=== PATIENT | female | born 1980 | race Caucasian/White ===

== ENCOUNTER 2020-05-05 11:13 | Emergency (ER) | payer OTHER, MEDICAID, SELFPAY ==
[2020-05-05 11:37] VITALS: BP 158/73; PULSE 97; RESP 16; TEMP 36.4; O2SAT 99; BMI 55.1
--- NOTE | 2020-05-05 12:02 | ED_ITS ---
HPI - Extremity Problem <NAPOLEON Shields - Last Filed: 05/05/20 18:28> General Chief complaint: Extremity Problem,Nontraumatic Stated complaint: both lower leg swelling/bruising/sob x6 weeks Time Seen by Provider: 05/05/20 11:17 Source: patient Mode of arrival: Wheelchair Limitations: no limitations History of Present Illness HPI Narrative: 40yo female with history of mentation delay and hypertension, presents to the emergency department with her mother for bilateral lower leg swelling. Mother states she has had chronic edema for the past few years. However over the past 5 weeks they have noticed increasing edema bilaterally and a brownish color noted to the bottom of her legs. Patient does report bilateral leg pain that is worse at night. Mother has been concerned as patient had increasing respiratory effort with activity, mother also reports she occasionally makes gasping noises during her sleep over the past year. Mother and patient deny any other symptoms such as chest pain, dizziness, syncope, fevers, chills, cough, abdominal pain, vomiting, nausea, trauma to the area, or decreased sensation. Mother states patient is fairly sedentary. Patient has had a recent MRI of her knee due to increasing pain, arthritis and bone spurs noted. She has a follow-up with an orthopedic for further evaluation of this. Related Data Previous Rx's Medication Instructions Recorded doxycycline hyclate 100 mg PO BID 7 Days #14 cap 05/05/20 Allergies Allergy/AdvReac Type Severity Reaction Status Date / Time No Known Drug Allergies Allergy Verified 05/05/20 11:37 Review of Systems <NAPOLEON Shields - Last Filed: 05/05/20 18:28> Review of Systems Narrative: REVIEW OF SYSTEMS: GENERAL: Denies fever or chills. HENT: No head trauma. CARDIOVASCULAR: No chest pain or syncope. RESPIRATORY: Reports increasing dyspnea with activity. GASTROINTESTINAL: No nausea, vomiting, diarrhea, or constipation. MUSCULOSKELETAL: Complains of bilateral leg swelling, discoloration, and pain, see HPI. INTEGUMENTARY: No rash, lesions, or pruritus. NEURO: No numbness, tingling. PSYCH: No behavior or mood changes. Patient History <NAPOLEON Shields - Last Filed: 05/05/20 18:28> Medical History HTN (hypertension) (Acute) Social History Smoking Status: Never smoker Smoking Status: Never smoker alcohol intake frequency: 0-2 drinks per day Substance Use Type: does not use Exam <NAPOLEON Shields - Last Filed: 05/05/20 18:28> Initial Vital Signs Initial Vital Signs: Vital Signs Temperature 97.5 F L 05/05/20 11:37 Pulse Rate 97 H 05/05/20 11:37 Respiratory Rate 16 05/05/20 11:37 Blood Pressure 158/73 H 05/05/20 11:37 Pulse Oximetry 99 05/05/20 11:37 PHYSICAL EXAMINATION: GENERAL: Well groomed, alert, and cooperative. Answers question fairly appropriately, poor historian due to history of mentation a with him, mother states this is her norm. Mother is a good historian. HENT: Normocephalic, atraumatic. EYES: Symmetrical, sclera white, no periorbital swelling. CARDIOVASCULAR: S1 and S2 sounds normal. Regular rate and rhythm, no murmurs, clicks, or bruits. No pedal edema. RESPIRATORY: Normal respiratory rate, trachea midline, airway patent. No stridor, nasal flaring or accessory muscle use. Lungs are clear in all beas[place]. MUSCULOSKELETAL: Bilateral 2+ edema noted to lower legs, nonpitting. Scattered brownish color to lower legs below knee extending to ankle appears to be venous stasis. Mild tenderness with palpation of bilateral calfs. Patch of give edema to anterior aspect of left simmons approximately 25cm x12cm, warm to touch. Normal gait and coordination. Equal tone and mass bilaterally. No bony tenderness to lower legs. EXTREMITIES: CMS intact. Pedal pulses 2+ and equal bilaterally, 2+ edema to feet, nonpitting. SKIN: Warm, dry, soft, appropriate color for ethnicity. No lesions, rashes, or wounds. NEURO: Alert and Oriented to person and place. Wandering thoughts, redirectabl e. Pleasant. PSYCH: Appropriate affect, interactions with mother are pleasant. <Roshan Polk DO - Last Filed: 05/06/20 18:17> Initial Vital Signs Initial Vital Signs: Vital Signs Temperature 97.5 F L 05/05/20 11:37 Pulse Rate 97 H 05/05/20 11:37 Respiratory Rate 16 05/05/20 11:37 Blood Pressure 158/73 H 05/05/20 11:37 Pulse Oximetry 99 05/05/20 11:37 Scores <Mary MelendezNAPOLEON torres - Last Filed: 05/05/20 18:28> PERC Score Age greater than or equal to 50 years: No Heart rate greater than or equal to 100 bpm: No Room Air O2 Sat less than 95%: No Unilateral leg swelling: No Recent trauma or surgery: No Hemoptysis: No Prior PE or DVT: No Hormone Use: No Total PERC Score: 0 Ash' Criteria for PE Clinical signs and symptoms of DVT: No PE is #1 Dx or equally likely: No Heart rate > 100: No Immobilization at least 3 days or surg in previous 4 weeks: Yes History of PE or DVT: No Hemoptysis: No Malignancy w/Treatment within 6 months or palliative: No Ash' PE Score total: 1.5 Ash' Criteria for DVT Active Cancer (Treatment within 6 months): No Bedridden recently >3 days or major surgery within 4 weeks: No Calf Swelling >3cm compared to other leg: No Collateral (nonvericose) superficial veins present: No Entire leg swollen: No Localized tenderness along the deep vein system: No Pitting edema, confined to symtomatic leg: No Paralysis, paresis, or recent plaster immobilization of ext: No Previously documented DVT: No Alternative dx to DVT as likely or more likely: No Ash' criteria for DVT: 0 Course <NAPOLEON Shields - Last Filed: 05/05/20 18:28> Orders Ordered: Discontinued Medications Non-Formulary Medication (Melquiades Hose) 1 prepack TOP DAILY [facility] Reevaluation(s) Reevaluation #1: Patient staffed with Dr. Polk, discussed patient's symptoms, tests, test results. Vital Signs Vital signs: Vital Signs - 8 hr 05/05/20 11:37 05/05/20 15:02 Temperature 97.5 F L Pulse Rate 97 H 90 Respiratory Rate 16 Blood Pressure 158/73 H 143/90 H Pulse Oximetry 99 100 <Roshan Polk DO - Last Filed: 05/06/20 18:17> Orders Ordered: Discontinued Medications Non-Formulary Medication (Melquiades Hose) 1 prepack TOP DAILY [facility] Vital Signs Vital signs: Vital Signs - 8 hr 05/05/20 11:37 05/05/20 15:02 Temperature 97.5 F L Pulse Rate 97 H 90 Respiratory Rate 16 Blood Pressure 158/73 H 143/90 H Pulse Oximetry 99 100 MDM - Extremity (Nontraumatic) <Mary Chong [employer] - Last Filed: 05/05/20 18:28> Medical Records Attestation: I reviewed the patient's medical records. Lab Data Attestation: I reviewed the patient's lab results. Result diagrams: 05/05/20 12:25 05/05/20 12:25 Labs: Lab Results 05/05/20 05/05/20 05/05/20 Range/Units 12:25 12:25 12:25 WBC 7.1 (4.5-11.0) X10^3/uL RBC 4.10 (4.0-5.2) X10^6/uL Hgb 11.1 L (12.0-16.0) g/dL Hct 33.9 L (36-46) % MCV 82.6 (80-100) fL MCH 27.2 (26-34) PG MCHC 32.9 (30-36) % RDW 13.4 (11.6-14.8) % Plt Count 331 (150-400) X10^3/uL Neut % (Auto) 68.4 (50-75) % Lymph % (Auto) 21.6 L (25-40) % [place] % (Auto) 7.1 (3-14) % Eos % (Auto) 2.0 (2-4) % Baso % (Auto) 0.9 (0-2) % Neut # (Auto) 4900 (7684-8237) /uL Lymph # (Auto) 1500 (3649-6416) /uL [place] # (Auto) 500 (0-900) /uL Eos # (Auto) 100 (0-450) /uL Baso # (Auto) 100 (0-100) /uL D-Dimer 472 H (<230) ng/mL Sodium 136 L (137-145) mmol/L Potassium 4.5 (3.4-5.1) mmol/L Chloride 103 (98-107) mmol/L Carbon Dioxide 24 (22-32) mmol/L BUN 20 H (7-17) mg/dL Creatinine 0.95 (0.52-1.04) mg/dL Estimated GFR > 60.0 (>60) mL/min BUN/Creatinine Ratio 21.1 (6-22) Glucose 97 (70-100) mg/dL Calcium 9.5 (8.4-10.2) mg/dL Total Bilirubin 0.4 (0.2-1.3) mg/dL AST 25 (14-36) IU/L ALT 24 (<35) IU/L Alkaline Phosphatase 141 H (38-126) U/L NT-Pro-B Natriuret Pep 179 H (<125) pg/mL Total Protein 7.7 (6.3-8.2) g/dL Albumin 4.0 (3.5-5.0) g/dL Globulin 3.7 (1.7-4.1) g/dL Albumin/Globulin Ratio 1.1 (1.0-2.8) Imaging Data CTA: Radiologist's Impression: [address] [address] [address] Scan Report Signed Patient: Arely Collins R#: [id number] : 1980Acct:[id number] Age/Sex: 40 / FDate of Service: 05/05/20 Loc: ED Accession Number: [id number] Procedure: CT angio chest PE protocol Ordering Provider: Mary Chong PROCEDURE: CT ANGIO CHEST PE PROTOCOL INDICATIONS: SOB, + D-dimer TECHNIQUE: After the administration of intravenous contrast, 2 mm thick sections acquired from the pulmonary apices to the posterior costophrenic angles. 3-dimensional maximum intensity projection (MIP) coronal and sagittal reformats were then acquired through the thorax. For radiation dose reduction, the following was used: automated exposure control, adjustment of mA and/or kV according to patient size. COMPARISON: None. FINDINGS: Image quality: Excellent. Pulmonary arteries: Pulmonary arteries are normal in size, and demonstrate no intraluminal filling defects to suggest central pulmonary embolism. Lungs and pleura: Lungs are likely clear considering prominently reduced ins piratory volume associated with large body habitus. No pleural effusions or pneumothorax. Central and peripheral airways are patent. Mediastinum: Heart size is normal, without pericardial effusion. No mediastinal or hilar adenopathy. Thoracic aorta is normal in caliber and enhancement. Esop hagus is normal in caliber, without hiatal hernia. Bones and chest wall: No suspicious bony lesions. Ribs and thoracic spine appear intact throughout. Thyroid gland appears normal but relatively poorly seen and not fully included on the examination.. No axillary or supraclavicular adenopathy. Abdomen: Visualized upper abdominal solid organs appear normal in the early arterial phase of enhancement. IMPRESSION: No pulmonary embolus seen, no focal pneumonia identified. There is prominent reduced inspiratory volume as discussed, resulting in crowding of the bronchovascular markings in each lung especially over the lung bases. Dictated by: Nathanael Downey M.D. on 05/05/2020 at 13:37 Approved by: Nathanael Downey M.D. on 05/05/2020 at 13:38 Bilateral US: Radiologist's Impression: [address] [address] Ultrasound Report Signed Patient: Arely Collins HMR#: [id number] : 1980Acct:[id number] Age/Sex: 40 / FDate of Service: 05/05/20 Loc: ED Accession Number: [id number] Procedure: US periph venous low extrem bi Ordering Provider: Mary Chong PROCEDURE: US PERIPH VENOUS LOW EXTREM BI INDICATIONS: LOW LEG SWELLING TECHNIQUE: Real-time imaging, as well as color and pulse Doppler interrogation, were performed of the deep veins of both legs from the inguinal ligament to the popliteal fossa. COMPARISON: [facility], CT, CT ANGIO CHEST PE PROTOCOL, 05/05/2020, 13:11. FINDINGS: Right: The common femoral, femoral and popliteal veins are normally compressible, and free of intraluminal thrombus. Color and pulse Doppler demonstrate normal phasic intravascular flow. There is normal augmentation response to distal compression maneuver. Left: The common femoral, femoral and popliteal veins are normally compressible, and free of intraluminal thrombus. Color and pulse Doppler demonstrate normal phasic intravascular flow. There is normal augmentation response to distal compression maneuver. IMPRESSION: Negative exam. No lower extremity DVT in either leg. Dictated by: Jeffrey Tellez M.D. on 05/05/2020 at 14:06 Approved by: Jeffrey Tellez M.D. on 05/05/2020 at 14:08 MDM Narrative Medical decision making narrative: 40-year-old female presents to the emergency department for bilateral calf pain, swelling, nursing dyspnea on exertion. I suspect patient's symptoms are most likely caused by venous stasis given brown discoloration and chronically swollen legs. Additionally, there is some concern for cellulitis due to erythematous patch noted on left leg. Patient was prescribed doxycycline. Was also prescribed Melquiades Hose. Differential also included PE, after well's criteria and PERC criteria, D-dimer was ordered. Due to positive D-dimer, CT and bilateral lower extremities were ordered given symptoms. No PE or DVT found. Less likely CHF given normal BNP, nonpitting edema, and no history of cardiac abnormalities. No murmurs heard on auscultation. No concerns for sepsis, patient is hemodynamically stable, afebrile, non tachycardic, and well-appearing. Patient was encouraged to follow up with her primary care provider in 1-2 weeks for further evaluation and discussion of possible repeat bilateral ultrasounds if symptoms continue. Return precautions given for new or worsening symptoms. Patient and mother agreed to plan of care. <Roshan Polk, DO - Last Filed: 05/06/20 18:17> Lab Data Labs: Lab Results 05/05/20 05/05/20 05/05/20 Range/Units 12:25 12:25 12:25 WBC 7.1 (4.5-11.0) X10^3/uL RBC 4.10 (4.0-5.2) X10^6/uL Hgb 11.1 L (12.0-16.0) g/dL Hct 33.9 L (36-46) % MCV 82.6 (80-100) fL MCH 27.2 (26-34) PG MCHC 32.9 (30-36) % RDW 13.4 (11.6-14.8) % Plt Count 331 (150-400) X10^3/uL Neut % (Auto) 68.4 (50-75) % Lymph % (Auto) 21.6 L (25-40) % [place] % (Auto) 7.1 (3-14) % Eos % (Auto) 2.0 (2-4) % Baso % (Auto) 0.9 (0-2) % Neut # (Auto) 4900 (7354-7541) /uL Lymph # (Auto) 1500 (3741-0503) /uL [place] # (Auto) 500 (0-900) /uL Eos # (Auto) 100 (0-450) /uL Baso # (Auto) 100 (0-100) /uL D-Dimer 472 H (<230) ng/mL Sodium 136 L (137-145) mmol/L Potassium 4.5 (3.4-5.1) mmol/L Chloride 103 (98-107) mmol/L Carbon Dioxide 24 (22-32) mmol/L BUN 20 H (7-17) mg/dL Creatinine 0.95 (0.52-1.04) mg/dL Estimated GFR > 60.0 (>60) mL/min BUN/Creatinine Ratio 21.1 (6-22) Glucose 97 (70-100) mg/dL Calcium 9.5 (8.4-10.2) mg/dL Total Bilirubin 0.4 (0.2-1.3) mg/dL AST 25 (14-36) IU/L ALT 24 (<35) IU/L Alkaline Phosphatase 141 H (38-126) U/L NT-Pro-B Natriuret Pep 179 H (<125) pg/mL Total Protein 7.7 (6.3-8.2) g/dL Albumin 4.0 (3.5-5.0) g/dL Globulin 3.7 (1.7-4.1) g/dL Albumin/Globulin Ratio 1.1 (1.0-2.8) Discharge Plan Departure Patient Disposition: Home Clinical Impression: Venous stasis Cellulitis Qualifiers: Site of cellulitis: extremity Site of cellulitis of extremity: lower extremity Laterality: left Qualified Code(s): L03.116 - Cellulitis of left lower limb Discharge Date/Time: 05/05/20 15:05 Activity Restrictions/Additional Instructions: Thank you for entrusting me with your care today. As discussed, your CT was negative for any blood clot in your lungs and your ultrasounds were negative for any blood clots in your legs. I suspect your symptoms are most likely caused by venous stasis, extra fluid in your legs can cause swelling and skin color changes. Additionally, it appears that your left leg may be slightly infected. I suggest wearing compression stockings, elevating legs, and moving her legs frequently to help with this. I prescribed you an antibiotic, please take this as directed. Please follow-up with your primary care provider in the next 1-2 weeks for further examination. Return emergency department for any new or worsening symptoms such as chest pain, shortness of breath, high fevers or severe pain, or any other concerns. Prescriptions: New doxycycline hyclate 100 mg capsule 100 mg PO BID 7 Days Qty: 14 RF: 0 Referrals: Lee Ann Quick ARNP [Primary Care Provider] -
[2020-05-05 12:33] LABS: Add Manual Diff / Slide Review NO; Basophils Absolute Auto 100 /uL (0-100); Basophils Percent Auto 0.9 % (0-2); Eosinophils Absolute Auto 100 /uL (0-450); Hematocrit 33.9 % (36-46); Hemoglobin 11.1 g/dL (12.0-16.0); Lymphocytes Absolute Auto 1500 /uL (1100-4500); Lymphocytes Percent Auto 21.6 % (25-40); Mean Corpuscular HGB Conc 32.9 % (30-36); Mean Corpuscular Hemoglobin 27.2 PG (26-34); Mean Corpuscular Volume 82.6 fL (80-100); Monocytes Absolute Auto 500 /uL (0-900); Monocytes Percent Auto 7.1 % (3-14); Neutrophils Absolute Auto 4900 /uL (1500-7000); Neutrophils Percent Auto 68.4 % (50-75); Platelet Count 331 X10^3/uL (150-400); Red Cell Distribution Width 13.4 % (11.6-14.8); White Blood Cell Count 7.1 X10^3/uL (4.5-11.0)
[2020-05-05 12:42] LABS: D Dimer 472 ng/mL (<230)
[2020-05-05 12:43] LABS: Alanine Aminotransferase 24 IU/L (<35); Albumin Globulin Ratio 1.1 (1.0-2.8); Alkaline Phosphatase 141 U/L (38-126); Aspartate Aminotransferase 25 IU/L (14-36); BUN Creatinine Ratio 21.1 (6-22); Bilirubin Total 0.4 mg/dL (0.2-1.3); Blood Urea Nitrogen 20 mg/dL (7-17); Calcium 9.5 mg/dL (8.4-10.2); Carbon Dioxide 24 mmol/L (22-32); Chloride 103 mmol/L (98-107); Estimated Glomerular Filt Rate > 60.0 mL/min (>60); Globulin 3.7 g/dL (1.7-4.1); Glucose 97 mg/dL (70-100); HEMOLYSIS < 15 (0-50); Potassium 4.5 mmol/L (3.4-5.1); Sodium 136 mmol/L (137-145); Total Protein 7.7 g/dL (6.3-8.2)
[2020-05-05 12:52] LABS: NT-proBNP (BNP-Adult 18+) 179 pg/mL (<125)
--- NOTE | 2020-05-05 12:54 | DI.US.S_ITS ---
PROCEDURE: US PERIPH VENOUS LOW EXTREM BI INDICATIONS: LOW LEG SWELLING TECHNIQUE: Real-time imaging, as well as color and pulse Doppler interrogation, were performed of the deep veins of both legs from the inguinal ligament to the popliteal fossa. COMPARISON: [facility], CT, CT ANGIO CHEST PE PROTOCOL, 05/05/2020, 13:11. FINDINGS: Right: The common femoral, femoral and popliteal veins are normally compressible, and free of intraluminal thrombus. Color and pulse Doppler demonstrate normal phasic intravascular flow. There is normal augmentation response to distal compression maneuver. Left: The common femoral, femoral and popliteal veins are normally compressible, and free of intraluminal thrombus. Color and pulse Doppler demonstrate normal phasic intravascular flow. There is normal augmentation response to distal compression maneuver. IMPRESSION: Negative exam. No lower extremity DVT in either leg. Dictated by: Jeffrey Tellez M.D. on 05/05/2020 at 14:06 Approved by: Jeffrey Tellez M.D. on 05/05/2020 at 14:08
--- NOTE | 2020-05-05 12:54 | DI.CT.S_ITS ---
PROCEDURE: CT ANGIO CHEST PE PROTOCOL INDICATIONS: SOB, + D-dimer TECHNIQUE: After the administration of intravenous contrast, 2 mm thick sections acquired from the pulmonary apices to the posterior costophrenic angles. 3-dimensional maximum intensity projection (MIP) coronal and sagittal reformats were then acquired through the thorax. For radiation dose reduction, the following was used: automated exposure control, adjustment of mA and/or kV according to patient size. COMPARISON: None. FINDINGS: Image quality: Excellent. Pulmonary arteries: Pulmonary arteries are normal in size, and demonstrate no intraluminal filling defects to suggest central pulmonary embolism. Lungs and pleura: Lungs are likely clear considering prominently reduced inspiratory volume associated with large body habitus. No pleural effusions or pneumothorax. Central and peripheral airways are patent. Mediastinum: Heart size is normal, without pericardial effusion. No mediastinal or hilar adenopathy. Thoracic aorta is normal in caliber and enhancement. Esophagus is normal in caliber, without hiatal hernia. Bones and chest wall: No suspicious bony lesions. Ribs and thoracic spine appear intact throughout. Thyroid gland appears normal but relatively poorly seen and not fully included on the examination.. No axillary or supraclavicular adenopathy. Abdomen: Visualized upper abdominal solid organs appear normal in the early arterial phase of enhancement. IMPRESSION: No pulmonary embolus seen, no focal pneumonia identified. There is prominent reduced inspiratory volume as discussed, resulting in crowding of the bronchovascular markings in each lung especially over the lung bases. Dictated by: Nathanael Downey M.D. on 05/05/2020 at 13:37 Approved by: Nathanael Downey M.D. on 05/05/2020 at 13:38
[2020-05-05 15:02] VITALS: BP 143/90; PULSE 90; O2SAT 100
== END 2020-05-05 15:05 | disposition home or self-care (01) ==
PROVIDERS: Emergency Provider Nurse Practitioner; PCP Nurse Practitioner Family
DX: L03.116 Cellulitis of left lower limb (principal); I87.8 Other specified disorders of veins; R60.0 Localized edema
CPT/HCPCS: 36415; 71275; 80053; 83880; 85025; 85379; 93970; 99284

== ENCOUNTER 2021-10-12 12:45 | Emergency (ER) | payer OTHER, MEDICAID, SELFPAY ==
[2021-10-12] VITALS (12 sets, daily range): BP systolic 142–199; BP diastolic 67–93; PULSE 97–121; RESP 12–24; TEMP 36.8; O2SAT 96–100; BMI 54.5
--- NOTE | 2021-10-12 13:21 | DI.RAD.S_ITS ---
PROCEDURE: XR CHEST 1V INDICATIONS: palpitations TECHNIQUE: One view of the chest was acquired. COMPARISON: [facility], CT, CT ANGIO CHEST PE PROTOCOL, 05/05/2020, 13:11. FINDINGS: Surgical changes and devices: None. Lungs and pleura: Lungs are clear. No pleural effusions or pneumothorax. Mediastinum: Mediastinal contours appear normal. Heart size is normal. Bones and chest wall: No suspicious bony lesions. Overlying soft tissues appear unremarkable. IMPRESSION: No acute cardiopulmonary disease. Dictated by: Mary Paulino M.D. on 10/12/2021 at 13:51 Approved by: Mary Paulino M.D. on 10/12/2021 at 13:52
--- NOTE | 2021-10-12 13:23 | ED_ITS ---
HPI - General Adult <GREGORIO Bourgeois - Last Filed: 10/12/21 19:52> General Chief complaint: Hypertension Stated complaint: High BP, Panic attacks Time Seen by Provider: 10/12/21 13:09 Source: patient Mode of arrival: Ambulatory History of Present Illness HPI narrative: The patient is a 41-year-old female nonsmoker with history of hypothyroidism, mood disorder, neurodevelopmental disorder, anxiety spina bifida with history of NSTEMI and anemia who presents with a chief complaint of panic attacks since yesterday where she cries and feels like her heart is beating out of her chest. She states she feels like her heart rate goes up and she feels very anxious. She currently denies any pain nausea or vomiting upon my interview. Of note the patient presents with her mother who is her primary caregiver, who states that she used to be on a small dose of Zoloft, but that she did not see and impact an d along the prescription to run out 2-3 weeks ago. She has not taken anything for anxiety. Related Data Previous Rx's Medication Instructions Recorded hydroxyzine HCl 25 mg tablet 25 mg PO QID PRN #20 tab 10/12/21 Allergies Allergy/AdvReac Type Severity Reaction Status Date / Time No Known Drug Allergies Allergy Verified 10/12/21 13:01 Review of Systems <GREGORIO Bourgeois - Last Filed: 10/12/21 19:52> Review of Systems Narrative: GENERAL: Denies chills, fatigue, malaise, fever, sweats. HEENT: Denies sinus pain, ear pain, sore throat, difficulty swallowing, dizzine ss. RESPIRATORY: See HPI CARDIOVASCULAR: See HPI GASTROINTESTINAL: Denies nausea, vomiting, abdominal pain, diarrhea, constipation, melena. : Denies dysuria, frequency, incontinence, hematuria, urinary retention. MUSCULOSKELETAL: denies weakness, joint pain, or bony pain SKIN: See HPI NEUROLOGIC: Denies weakness, headache, numbness, change in speech, confusion, seizures, incoordination. PSYCHIATRIC: No concerning psychosocial issues. 12 point review of systems is negative except for those stated above Patient History <GREGORIO Bourgeois - Last Filed: 10/12/21 19:52> Medical History HTN (hypertension) Social History Smoking Status: Never smoker Smoking Status: Never smoker alcohol intake frequency: 0-2 drinks per day Substance Use Type: does not use Exam <GREGORIO Bourgeois - Last Filed: 10/12/21 19:52> Narrative Exam Narrative: GENERAL: This is a well-nourished, well-developed patient, in no acute distress with mother bedside HEAD: Atraumatic. Normocephalic. No temporal or scalp tenderness. EYES: Pupils equal round and reactive. Extraocular motions intact. No scleral icterus. No injection or drainage. ENT: Nose without bleeding, purulent drainage or septal hematoma. Throat without erythema, tonsillar hypertrophy or exudate. Uvula midline. Airway patent. NECK: Trachea midline. No JVD or lymphadenopathy. Supple, nontender, no meningeal signs. CARDIOVASCULAR: Regular rate and rhythm RESPIRATORY: Clear to auscultation. Breath sounds equal bilaterally. No wheezes, rales, or rhonchi. No cough. No increased respiratory effort. No accessory muscle use. GASTROINTESTINAL: Abdomen soft, non-tender, nondistended. No hepato- splenomegaly, or palpable masses. No guarding. EXTREMITIES: No clubbing, cyanosis, noted. 2+ edema bilateral lower extremities BACK: Nontender without deformity or crepitance. No flank tenderness. NEURO: Alert, pleasant, interactive, mother at bedside, at baseline for pat ient. Teary at times. SKIN: No rash or erythema on visible skin Initial Vital Signs Initial Vital Signs: Vital Signs Temperature 98.3 F 10/12/21 13:00 Pulse Rate 100 H 10/12/21 13:00 Respiratory Rate 15 10/12/21 13:00 Blood Pressure 199/93 H 10/12/21 13:00 Pulse Oximetry 100 10/12/21 13:00 <Fermín Quintana DO - Last Filed: 10/16/21 07:04> Initial Vital Signs Initial Vital Signs: Vital Signs Temperature 98.3 F 10/12/21 13:00 Pulse Rate 100 H 10/12/21 13:00 Respiratory Rate 15 10/12/21 13:00 Blood Pressure 199/93 H 10/12/21 13:00 Pulse Oximetry 100 10/12/21 13:00 Scores <GREGORIO Bourgeois - Last Filed: 10/12/21 19:52> GCS Radha coma scale eye opening: Spontaneous [place] coma scale verbal response: Orientated [place] coma scale motor response: Obey commands Radha coma scale total score: 15 <Fermín Quintana DO - Last Filed: 10/16/21 07:04> GCS Radha coma scale total score: 15 Course <GREGORIO Bourgeois - Last Filed: 10/12/21 19:52> Orders Ordered: Discontinued Medications Lorazepam (Lorazepam 2 Mg/Ml Inj) 1 mg IV NOW ONE Stop: 10/12/21 14:55 Last Admin: 10/12/21 15:33 Dose: 1 mg Documented by: LINDSAY Vital Signs Vital signs: Vital Signs - 8 hr 10/12/21 13:00 10/12/21 13:51 10/12/21 14:00 Temperature 98.3 F Pulse Rate 100 H 98 H 100 H Respiratory Rate 15 12 21 Blood Pressure 199/93 H 142/77 H Pulse Oximetry 100 100 100 10/12/21 14:30 10/12/21 15:05 10/12/21 15:30 Temperature Pulse Rate 98 H 113 H 109 H Respiratory Rate 24 20 20 Blood Pressure Pulse Oximetry 100 99 99 10/12/21 15:38 10/12/21 16:00 10/12/21 16:30 Temperature Pulse Rate 121 H 106 H 104 H Respiratory Rate 18 Blood Pressure 148/67 H Pulse Oximetry 97 98 98 10/12/21 17:00 10/12/21 17:30 10/12/21 17:39 Temperature 98.2 F Pulse Rate 97 H 99 H 97 H Respiratory Rate Blood Pressure 160/76 H Pulse Oximetry 99 96 100 <Fermín Quintana DO - Last Filed: 10/16/21 07:04> Orders Ordered: Discontinued Medications Lorazepam (Lorazepam 2 Mg/Ml Inj) 1 mg IV NOW ONE Stop: 10/12/21 14:55 Last Admin: 10/12/21 15:33 Dose: 1 mg Documented by: LINDSAY Vital Signs Vital signs: Vital Signs - 8 hr 10/12/21 13:00 10/12/21 13:51 10/12/21 14:00 Temperature 98.3 F Pulse Rate 100 H 98 H 100 H Respiratory Rate 15 12 21 Blood Pressure 199/93 H 142/77 H Pulse Oximetry 100 100 100 10/12/21 14:30 10/12/21 15:05 10/12/21 15:30 Temperature Pulse Rate 98 H 113 H 109 H Respiratory Rate 24 20 20 Blood Pressure Pulse Oximetry 100 99 99 10/12/21 15:38 10/12/21 16:00 10/12/21 16:30 Temperature Pulse Rate 121 H 106 H 104 H Respiratory Rate 18 Blood Pressure 148/67 H Pulse Oximetry 97 98 98 10/12/21 17:00 10/12/21 17:30 10/12/21 17:39 Temperature 98.2 F Pulse Rate 97 H 99 H 97 H Respiratory Rate Blood Pressure 160/76 H Pulse Oximetry 99 96 100 Medical Decision Making <Ivett Smith, PINA-BC - Last Filed: 10/12/21 19:52> Lab Data Lab results reviewed: Yes I reviewed the patient's lab results. Result diagrams: 10/12/21 14:04 10/12/21 14:04 Labs: Lab Results 10/12/21 10/12/21 10/12/21 Range/Units 13:35 13:35 14:04 WBC (4.5-11.0) X10^3/uL RBC (4.0-5.2) X10^6/uL Hgb (12.0-16.0) g/dL Hct (36-46) % MCV (80-100) fL MCH (26-34) PG MCHC (30-36) % RDW (11.6-14.8) % Plt Count (150-400) X10^3/uL Neut % (Auto) (50-75) % Lymph % (Auto) (25-40) % Kemper % (Auto) (3-14) % Eos % (Auto) (2-4) % Baso % (Auto) (0-2) % Neut # (Auto) (7047-3637) /uL Lymph # (Auto) (4290-8708) /uL Kemper # (Auto) (0-900) /uL Eos # (Auto) (0-450) /uL Baso # (Auto) (0-100) /uL D-Dimer 276 H (<230) ng/mL Sodium (137-145) mmol/L Potassium (3.4-5.1) mmol/L Chloride (98-107) mmol/L Carbon Dioxide (22-32) mmol/L BUN (7-17) mg/dL Creatinine (0.52-1.04) mg/dL Estimated GFR (>60) mL/min BUN/Creatinine Ratio (6-22) Glucose (70-100) mg/dL Calcium (8.4-10.2) mg/dL Total Bilirubin (0.2-1.3) mg/dL AST (14-36) IU/L ALT (<35) IU/L Alkaline Phosphatase (38-126) U/L Total Creatine Kinase (30-135) U/L CK-MB (CK-2) CK-MB (CK-2) Rel Index Troponin I (0.01-0.034) ng/mL NT-Pro-B Natriuret Pep (<125) pg/mL Total Protein (6.3-8.2) g/dL Albumin (3.5-5.0) g/dL Globulin (1.7-4.1) g/dL Albumin/Globulin Ratio (1.0-2.8) Lipase (23-300) U/L TSH (0.47-4.68) uIU/mL Free T4 (0.78-2.19) ng/dL Urine RBC 10-30/hpf H (0-5/HPF) Urine WBC 1-5/hpf (0-5/HPF) Ur Squamous Epith Cells 1-5 /hpf (0-5/HPF) Urine Bacteria Many (>30) H (None) Urine Yeast 0-1/hpf (None) Ur Culture Indicated? Cult not indicated U Opiates 300ng/mL cut Negative (Negative) Ur Oxycodone Screen Negative (Negative) Urine Methadone Screen Negative (Negative) Ur Barbiturates Screen Negative (Negative) U Tricyclic Antidepress Negative (Negative) Ur Phencyclidine Scrn Negative (Negative) Ur Amphetamines Screen Negative (Negative) U Methamphetamines Scrn Negative (Negative) Ur MDMA Scrn (Ecstasy) Negative (Negative) U Benzodiazepines Scrn Negative (Negative) Urine Cocaine Screen Negative (Negative) U Marijuana (THC) Screen Negative (Negative) Ethyl Alcohol ( - 10) mg/dL SARS-CoV-2 (PCR) (Negative) 10/12/21 10/12/21 10/12/21 Range/Units 14:04 14:04 14:04 WBC 6.3 (4.5-11.0) X10^3/uL RBC 4.22 (4.0-5.2) X10^6/uL Hgb 11.7 L (12.0-16.0) g/dL Hct 34.1 L (36-46) % MCV 80.8 (80-100) fL MCH 27.7 (26-34) PG MCHC 34.3 (30-36) % RDW 13.3 (11.6-14.8) % Plt Count 306 (150-400) X10^3/uL Neut % (Auto) 73.4 (50-75) % Lymph % (Auto) 19.0 L (25-40) % Kemper % (Auto) 5.4 (3-14) % Eos % (Auto) 1.0 L (2-4) % Baso % (Auto) 1.2 (0-2) % Neut # (Auto) 4600 (8629-0976) /uL Lymph # (Auto) 1200 (7068-0608) /uL Kemper # (Auto) 300 (0-900) /uL Eos # (Auto) 100 (0-450) /uL Baso # (Auto) 100 (0-100) /uL D-Dimer (<230) ng/mL Sodium (137-145) mmol/L Potassium (3.4-5.1) mmol/L Chloride (98-107) mmol/L Carbon Dioxide (22-32) mmol/L BUN (7-17) mg/dL Creatinine (0.52-1.04) mg/dL Estimated GFR (>60) mL/min BUN/Creatinine Ratio (6-22) Glucose (70-100) mg/dL Calcium (8.4-10.2) mg/dL Total Bilirubin (0.2-1.3) mg/dL AST (14-36) IU/L ALT (<35) IU/L Alkaline Phosphatase (38-126) U/L Total Creatine Kinase (30-135) U/L CK-MB (CK-2) CK-MB (CK-2) Rel Index Troponin I (0.01-0.034) ng/mL NT-Pro-B Natriuret Pep 195 H (<125) pg/mL Total Protein (6.3-8.2) g/dL Albumin (3.5-5.0) g/dL Globulin (1.7-4.1) g/dL Albumin/Globulin Ratio (1.0-2.8) Lipase (23-300) U/L TSH 6.06 H (0.47-4.68) uIU/mL Free T4 1.35 (0.78-2.19) ng/dL Urine RBC (0-5/HPF) Urine WBC (0-5/HPF) Ur Squamous Epith Cells (0-5/HPF) Urine Bacteria (None) Urine Yeast (None) Ur Culture Indicated? U Opiates 300ng/mL cut (Negative) Ur Oxycodone Screen (Negative) Urine Methadone Screen (Negative) Ur Barbiturates Screen (Negative) U Tricyclic Antidepress (Negative) Ur Phencyclidine Scrn (Negative) Ur Amphetamines Screen (Negative) U Methamphetamines Scrn (Negative) Ur MDMA Scrn (Ecstasy) (Negative) U Benzodiazepines Scrn (Negative) Urine Cocaine Screen (Negative) U Marijuana (THC) Screen (Negative) Ethyl Alcohol ( - 10) mg/dL SARS-CoV-2 (PCR) (Negative) 10/12/21 10/12/21 10/12/21 Range/Units 14:04 14:04 15:11 WBC (4.5-11.0) X10^3/uL RBC (4.0-5.2) X10^6/uL Hgb (12.0-16.0) g/dL Hct (36-46) % MCV (80-100) fL MCH (26-34) PG MCHC (30-36) % RDW (11.6-14.8) % Plt Count (150-400) X10^3/uL Neut % (Auto) (50-75) % Lymph % (Auto) (25-40) % Kemper % (Auto) (3-14) % Eos % (Auto) (2-4) % Baso % (Auto) (0-2) % Neut # (Auto) (5802-8390) /uL Lymph # (Auto) (7311-9649) /uL Kemper # (Auto) (0-900) /uL Eos # (Auto) (0-450) /uL Baso # (Auto) (0-100) /uL D-Dimer (<230) ng/mL Sodium 135 L (137-145) mmol/L Potassium 4.5 (3.4-5.1) mmol/L Chloride 104 (98-107) mmol/L Carbon Dioxide 27 (22-32) mmol/L BUN 17 (7-17) mg/dL Creatinine 0.89 (0.52-1.04) mg/dL Estimated GFR > 60.0 (>60) mL/min BUN/Creatinine Ratio 19.1 (6-22) Glucose 102 H (70-100) mg/dL Calcium 9.2 (8.4-10.2) mg/dL Total Bilirubin 0.6 (0.2-1.3) mg/dL AST 28 (14-36) IU/L ALT 26 (<35) IU/L Alkaline Phosphatase 140 H (38-126) U/L Total Creatine Kinase 81 (30-135) U/L CK-MB (CK-2) TNP CK-MB (CK-2) Rel Index TNP Troponin I < 0.012 (0.01-0.034) ng/mL NT-Pro-B Natriuret Pep (<125) pg/mL Total Protein 7.7 (6.3-8.2) g/dL Albumin 4.1 (3.5-5.0) g/dL Globulin 3.6 (1.7-4.1) g/dL Albumin/Globulin Ratio 1.1 (1.0-2.8) Lipase 90 (23-300) U/L TSH (0.47-4.68) uIU/mL Free T4 (0.78-2.19) ng/dL Urine RBC (0-5/HPF) Urine WBC (0-5/HPF) Ur Squamous Epith Cells (0-5/HPF) Urine Bacteria (None) Urine Yeast (None) Ur Culture Indicated? U Opiates 300ng/mL cut (Negative) Ur Oxycodone Screen (Negative) Urine Methadone Screen (Negative) Ur Barbiturates Screen (Negative) U Tricyclic Antidepress (Negative) Ur Phencyclidine Scrn (Negative) Ur Amphetamines Screen (Negative) U Methamphetamines Scrn (Negative) Ur MDMA Scrn (Ecstasy) (Negative) U Benzodiazepines Scrn (Negative) Urine Cocaine Screen (Negative) U Marijuana (THC) Screen (Negative) Ethyl Alcohol < 10 ( - 10) mg/dL SARS-CoV-2 (PCR) Negative (Negative) Point of Care Testing Test Results Negative Urine Dip Bedside Urine Glucose Negative Bedside Urine Bilirubin - Negative Bedside Urine Ketone - Negative Urine Specific Shaw 1.025 Bedside Urine Occult Blood +++ Bedside Urine pH 6.0 Bedside Urine Protein + 30 Bedside Urine Urobilinogen +/- 1mg Bedside Urine Nitrite - Negative Bedside Urine Leukocytes - Negative Esterase Point of care testing: Point of Care Testing Test Results Negative Urine Dip Bedside Urine Glucose Negative Bedside Urine Bilirubin - Negative Bedside Urine Ketone - Negative Urine Specific Shaw 1.025 Bedside Urine Occult Blood +++ Bedside Urine pH 6.0 Bedside Urine Protein + 30 Bedside Urine Urobilinogen +/- 1mg Bedside Urine Nitrite - Negative Bedside Urine Leukocytes - Negative Esterase Imaging Data Chest x-ray: My Impression: [address] [place] [id number] XRay Report Signed Patient: Aerly Collins MR#: [id number] : 1980 Acct:[id number] Age/Sex: 41 / F Date of Service: 10/12/21 Loc: ED Accession Number: [id number] ?? Procedure: XR chest 1V Ordering Provider: Ivett Smith PROCEDURE:? XR CHEST 1V ? INDICATIONS:? palpitations ? TECHNIQUE:? One view of the chest was acquired.? ? COMPARISON:? [facility], CT, CT ANGIO CHEST PE PROTOCOL, 05/05/2020, 13:11. ? FINDINGS:? ? Surgical changes and devices:? None.? ? Lungs and pleura:? Lungs are clear.? No pleural effusions or pneumothorax.? ? Mediastinum:? Mediastinal contours appear normal.? Heart size is normal.? ? Bones and chest wall:? No suspicious bony lesions.? Overlying soft tissues appear unremarkable.? ? IMPRESSION:? No acute cardiopulmonary disease. ? ? Dictated by: Mary Paulino M.D. on 10/12/2021 at 13:51 ? ? Approved by: Mary Paulino M.D. on 10/12/2021 at 13:52?? CT scan - chest: Radiologist's Impression: [address] [place] [address] [id number] [address] Scan Report Signed Patient: Arely Collins MR#: [id number] : 1980 Acct:[id number] Age/Sex: 41 / F Date of Service: 10/12/21 Loc: ED Accession Number: [id number] ?? Procedure: CT angio chest PE protocol Ordering Provider: Ivett Smith PROCEDURE:? CT ANGIO CHEST PE PROTOCOL ? INDICATIONS:? sob, + dimer ? TECHNIQUE:? After the administration of intravenous contrast, 2 mm thick sections acquired from the pulmonary apices to the posterior costophrenic angles.? 3-dimensional maximum intensity projection (MIP) coronal and sagittal reformats were then acquired through the thorax.? For radiation dose reduction, the following was used:? automated exposure control, adjustment of mA and/or kV according to patient size.? ? COMPARISON:? [facility], CT, CT ANGIO CHEST PE PROTOCOL, 05/05/2020, 13:11. ? FINDINGS:? Image quality:? Pulmonary arteries are suboptimally opacified.? ? Pulmonary arteries:? Pulmonary arteries are normal in size, and demonstrate no definitive intraluminal filling defects to suggest central pulmonary embolism.? ? Lungs and pleura:? Lungs are clear.? No pleural effusions or pneumothorax.? Central and peripheral airways are patent.? ? Mediastinum:? Heart size is normal, without pericardial effusion.? No mediastinal or hilar adenopathy.? Thoracic aorta is normal in caliber and enhancement.? Esophagus is normal in caliber.? Small hiatal hernia.? ? Bones and chest wall:? No suspicious bony lesions.? Ribs and thoracic spine appear intact throughout.? Thyroid gland is normal.? No axillary or supraclavicular adenopathy.? Multiple subcentimeter axillary lymph nodes are noted bilaterally, most likely reactive.? ? ? Abdomen:? Visualized upper abdominal solid organs appear normal in the early arterial phase of enhancement.? There may be gallstones. ? IMPRESSION:? ? 1. Suboptimal opacification of pulmonary arteries.? No definitive evidence for pulmonary embolism. 2. No acute cardiopulmonary process. 3. Question gallstones.? If clinically indicated, ultrasound may be helpful.? ? ? Dictated by: Mary Paulino M.D. on 10/12/2021 at 15:53 ? ? Approved by: Mary Paulino M.D. on 10/12/2021 at 15:58 ? US - DVT: Radiologist's Impression: [id number] [place] [id number] Ultrasound Report Signed Patient: Arely Collins MR#: [id number] : 1980 Acct:[id number] Age/Sex: 41 / F Date of Service: 10/12/21 Loc: ED Accession Number: [id number] ?? Procedure: US periph venous low extrem bi Ordering Provider: Ivett Smith PROCEDURE:? US PERIPH VENOUS LOW EXTREM BI ? INDICATIONS:? SWELLING. POSITIVE D-DIMER ? TECHNIQUE:? Real-time imaging, as well as color and pulse Doppler interrogation, were performed of the deep veins of both legs from the inguinal ligament to the popliteal fossa.? ? COMPARISON:? Located within [facility], PERIPH VENOUS LOW EXTREM BI, 05/05/2020, 13:32. ? FINDINGS:? ? Right: The common femoral, femoral and popliteal veins are normally compressible, and free of intraluminal thrombus.? Color and pulse Doppler demonstrate normal phasic intravascular flow.? There is normal augmentation response to distal compression maneuver.? ? Left: The common femoral, femoral and popliteal veins are normally compressible, and free of intraluminal thrombus.? Color and pulse Doppler demonstrate normal phasic intravascular flow.? There is normal augmentation response to distal compression maneuver.? ? ? IMPRESSION:? No sonographic evidence of deep venous thrombosis in the right or left lower extremity. ? ? Dictated by: Rohan Freitas M.D. on 10/12/2021 at 15:42 ? ? Approved by: Rohan Freitas M.D. on 10/12/2021 at 15:43 ? ECG Data Interpretation: Normal sinus rhythm, ventricular rate 97, CO interval 160, QRS 68. No ectopy noted.viewed by Dr Lilian CORRAL Narrative Medical decision making narrative: The patient is a 41-year-old female who presents with a chief complaint of chest palpitations, possible anxiety, shortness of breath episodes with crying. Is very complicated medical history and has been admitted for an NSTEMI at another facility in the past, with no records here at this facility. Given her cardiac history as well as complaints of palpitations, EKG and troponin were completed. Troponin is negative, however D-dimer is positive, so a CTA was done to rule out a pulmonary embolism. This resulted negative. Duplex shows no evidence of DVT in bilateral lower extremities, though she does have bilateral lower extremity swelling being treated with Lasix as an outpatient. Overall she is medically clear at this point time. She was incredibly anxious going to CT, so she received 1 mg of Ativan IV prior to this. She was then seen by outreach and education social worker who provided the patient and her mother resources regarding primary care and I did give her a prescription of as needed Ativan. Discussed at length follow up with primary care and coming back to the ER for acute concerns. Mother has no questions or concerns upon discharge states understanding return precautions as well as follow-up care. <Fermín Quintana, DO - Last Filed: 10/16/21 07:04> Lab Data Labs: Lab Results 10/12/21 10/12/21 10/12/21 Range/Units 13:35 13:35 14:04 WBC (4.5-11.0) X10^3/uL RBC (4.0-5.2) X10^6/uL Hgb (12.0-16.0) g/dL Hct (36-46) % MCV (80-100) fL MCH (26-34) PG MCHC (30-36) % RDW (11.6-14.8) % Plt Count (150-400) X10^3/uL Neut % (Auto) (50-75) % Lymph % (Auto) (25-40) % Kemper % (Auto) (3-14) % Eos % (Auto) (2-4) % Baso % (Auto) (0-2) % Neut # (Auto) (0624-0372) /uL Lymph # (Auto) (3434-3520) /uL Kemper # (Auto) (0-900) /uL Eos # (Auto) (0-450) /uL Baso # (Auto) (0-100) /uL D-Dimer 276 H (<230) ng/mL Sodium (137-145) mmol/L Potassium (3.4-5.1) mmol/L Chloride (98-107) mmol/L Carbon Dioxide (22-32) mmol/L BUN (7-17) mg/dL Creatinine (0.52-1.04) mg/dL Estimated GFR (>60) mL/min BUN/Creatinine Ratio (6-22) Glucose (70-100) mg/dL Calcium (8.4-10.2) mg/dL Total Bilirubin (0.2-1.3) mg/dL AST (14-36) IU/L ALT (<35) IU/L Alkaline Phosphatase (38-126) U/L Total Creatine Kinase (30-135) U/L CK-MB (CK-2) CK-MB (CK-2) Rel Index Troponin I (0.01-0.034) ng/mL NT-Pro-B Natriuret Pep (<125) pg/mL Total Protein (6.3-8.2) g/dL Albumin (3.5-5.0) g/dL Globulin (1.7-4.1) g/dL Albumin/Globulin Ratio (1.0-2.8) Lipase (23-300) U/L TSH (0.47-4.68) uIU/mL Free T4 (0.78-2.19) ng/dL Urine RBC 10-30/hpf H (0-5/HPF) Urine WBC 1-5/hpf (0-5/HPF) Ur Squamous Epith Cells 1-5 /hpf (0-5/HPF) Urine Bacteria Many (>30) H (None) Urine Yeast 0-1/hpf (None) Ur Culture Indicated? Cult not indicated U Opiates 300ng/mL cut Negative (Negative) Ur Oxycodone Screen Negative (Negative) Urine Methadone Screen Negative (Negative) Ur Barbiturates Screen Negative (Negative) U Tricyclic Antidepress Negative (Negative) Ur Phencyclidine Scrn Negative (Negative) Ur Amphetamines Screen Negative (Negative) U Methamphetamines Scrn Negative (Negative) Ur MDMA Scrn (Ecstasy) Negative (Negative) U Benzodiazepines Scrn Negative (Negative) Urine Cocaine Screen Negative (Negative) U Marijuana (THC) Screen Negative (Negative) Ethyl Alcohol ( - 10) mg/dL SARS-CoV-2 (PCR) (Negative) 10/12/21 10/12/21 10/12/21 Range/Units 14:04 14:04 14:04 WBC 6.3 (4.5-11.0) X10^3/uL RBC 4.22 (4.0-5.2) X10^6/uL Hgb 11.7 L (12.0-16.0) g/dL Hct 34.1 L (36-46) % MCV 80.8 (80-100) fL MCH 27.7 (26-34) PG MCHC 34.3 (30-36) % RDW 13.3 (11.6-14.8) % Plt Count 306 (150-400) X10^3/uL Neut % (Auto) 73.4 (50-75) % Lymph % (Auto) 19.0 L (25-40) % Kemper % (Auto) 5.4 (3-14) % Eos % (Auto) 1.0 L (2-4) % Baso % (Auto) 1.2 (0-2) % Neut # (Auto) 4600 (2520-9162) /uL Lymph # (Auto) 1200 (7272-4232) /uL Kemper # (Auto) 300 (0-900) /uL Eos # (Auto) 100 (0-450) /uL Baso # (Auto) 100 (0-100) /uL D-Dimer (<230) ng/mL Sodium (137-145) mmol/L Potassium (3.4-5.1) mmol/L Chloride (98-107) mmol/L Carbon Dioxide (22-32) mmol/L BUN (7-17) mg/dL Creatinine (0.52-1.04) mg/dL Estimated GFR (>60) mL/min BUN/Creatinine Ratio (6-22) Glucose (70-100) mg/dL Calcium (8.4-10.2) mg/dL Total Bilirubin (0.2-1.3) mg/dL AST (14-36) IU/L ALT (<35) IU/L Alkaline Phosphatase (38-126) U/L Total Creatine Kinase (30-135) U/L CK-MB (CK-2) CK-MB (CK-2) Rel Index Troponin I (0.01-0.034) ng/mL NT-Pro-B Natriuret Pep 195 H (<125) pg/mL Total Protein (6.3-8.2) g/dL Albumin (3.5-5.0) g/dL Globulin (1.7-4.1) g/dL Albumin/Globulin Ratio (1.0-2.8) Lipase (23-300) U/L TSH 6.06 H (0.47-4.68) uIU/mL Free T4 1.35 (0.78-2.19) ng/dL Urine RBC (0-5/HPF) Urine WBC (0-5/HPF) Ur Squamous Epith Cells (0-5/HPF) Urine Bacteria (None) Urine Yeast (None) Ur Culture Indicated? U Opiates 300ng/mL cut (Negative) Ur Oxycodone Screen (Negative) Urine Methadone Screen (Negative) Ur Barbiturates Screen (Negative) U Tricyclic Antidepress (Negative) Ur Phencyclidine Scrn (Negative) Ur Amphetamines Screen (Negative) U Methamphetamines Scrn (Negative) Ur MDMA Scrn (Ecstasy) (Negative) U Benzodiazepines Scrn (Negative) Urine Cocaine Screen (Negative) U Marijuana (THC) Screen (Negative) Ethyl Alcohol ( - 10) mg/dL SARS-CoV-2 (PCR) (Negative) 10/12/21 10/12/21 10/12/21 Range/Units 14:04 14:04 15:11 WBC (4.5-11.0) X10^3/uL RBC (4.0-5.2) X10^6/uL Hgb (12.0-16.0) g/dL Hct (36-46) % MCV (80-100) fL MCH (26-34) PG MCHC (30-36) % RDW (11.6-14.8) % Plt Count (150-400) X10^3/uL Neut % (Auto) (50-75) % Lymph % (Auto) (25-40) % Kem[place] % (Auto) (3-14) % Eos % (Auto) (2-4) % Baso % (Auto) (0-2) % Neut # (Auto) (3600-3407) /uL Lymph # (Auto) (1604-4494) /uL Kemper # (Auto) (0-900) /uL Eos # (Auto) (0-450) /uL Baso # (Auto) (0-100) /uL D-Dimer (<230) ng/mL Sodium 135 L (137-145) mmol/L Potassium 4.5 (3.4-5.1) mmol/L Chloride 104 (98-107) mmol/L Carbon Dioxide 27 (22-32) mmol/L BUN 17 (7-17) mg/dL Creatinine 0.89 (0.52-1.04) mg/dL Estimated GFR > 60.0 (>60) mL/min BUN/Creatinine Ratio 19.1 (6-22) Glucose 102 H (70-100) mg/dL Calcium 9.2 (8.4-10.2) mg/dL Total Bilirubin 0.6 (0.2-1.3) mg/dL AST 28 (14-36) IU/L ALT 26 (<35) IU/L Alkaline Phosphatase 140 H (38-126) U/L Total Creatine Kinase 81 (30-135) U/L CK-MB (CK-2) TNP CK-MB (CK-2) Rel Index TNP Troponin I < 0.012 (0.01-0.034) ng/mL NT-Pro-B Natriuret Pep (<125) pg/mL Total Protein 7.7 (6.3-8.2) g/dL Albumin 4.1 (3.5-5.0) g/dL Globulin 3.6 (1.7-4.1) g/dL Albumin/Globulin Ratio 1.1 (1.0-2.8) Lipase 90 (23-300) U/L TSH (0.47-4.68) uIU/mL Free T4 (0.78-2.19) ng/dL Urine RBC (0-5/HPF) Urine WBC (0-5/HPF) Ur Squamous Epith Cells (0-5/HPF) Urine Bacteria (None) Urine Yeast (None) Ur Culture Indicated? U Opiates 300ng/mL cut (Negative) Ur Oxycodone Screen (Negative) Urine Methadone Screen (Negative) Ur Barbiturates Screen (Negative) U Tricyclic Antidepress (Negative) Ur Phencyclidine Scrn (Negative) Ur Amphetamines Screen (Negative) U Methamphetamines Scrn (Negative) Ur MDMA Scrn (Ecstasy) (Negative) U Benzodiazepines Scrn (Negative) Urine Cocaine Screen (Negative) U Marijuana (THC) Screen (Negative) Ethyl Alcohol < 10 ( - 10) mg/dL SARS-CoV-2 (PCR) Negative (Negative) Point of Care Testing Test Results Negative Urine Dip Bedside Urine Glucose Negative Bedside Urine Bilirubin - Negative Bedside Urine Ketone - Negative Urine Specific Shaw 1.025 Bedside Urine Occult Blood +++ Bedside Urine pH 6.0 Bedside Urine Protein + 30 Bedside Urine Urobilinogen +/- 1mg Bedside Urine Nitrite - Negative Bedside Urine Leukocytes - Negative Esterase Point of care testing: Point of Care Testing Test Results Negative Urine Dip Bedside Urine Glucose Negative Bedside Urine Bilirubin - Negative Bedside Urine Ketone - Negative Urine Specific Shaw 1.025 Bedside Urine Occult Blood +++ Bedside Urine pH 6.0 Bedside Urine Protein + 30 Bedside Urine Urobilinogen +/- 1mg Bedside Urine Nitrite - Negative Bedside Urine Leukocytes - Negative Esterase Discharge Plan Departure Patient Disposition: Home Clinical Impression: Anxiety Instructions: DI for Anxiety -- Adult Activity Restrictions/Additional Instructions: Thank you for trusting us with your care today. As discussed your cardiac workup came back well. There is no sign of heart attack, your blood pressures are great here in the emergency department, and no sign of blood clot in your legs or lungs. This is excellent news. Please follow-up with primary care provider given the resources provided by our outreach and education social worker. I sent a small dose of hydroxyzine, which is a medication that is used for anxiety to [facility] in [place]. In the meantime please come back to the emergency department for any acute con cerns. Prescriptions: New hydroxyzine HCl 25 mg tablet 25 mg PO QID PRN (Reason: anxiety) Qty: 20 0RF Referrals: Lee Ann Quick ARNP [Primary Care Provider] - <Fermín Quintana, - Last Filed: 10/16/21 07:04> Cosign ED Attending Cosignature Attestation: Dr Quintana Co-Sign Statement: I was available for consultation during this pat ient's emergency department visit. This chart is signed by myself for administrative purposes only. I did not have direct contact with this patient during this visit. They were seen independently by the APC.
[2021-10-12 13:58] LABS: Bacteria Urine Many (>30); RBC Urine 10-30/HPF (0-5/HPF); Squamous Epithelial Cell Urine 1-5 /HPF (0-5/HPF); WBC Urine 1-5/HPF (0-5/HPF)
[2021-10-12 13:59] LABS: Culture Indicated Urine Cult Not Indicated; UR Morphine/Opiate cutoff 300 Negative (Negative); Ur Creatinine Normal (Normal); Ur Specific Gravity Normal (Normal); Urine Amphetamines Negative (Negative); Urine Barbiturates Negative (Negative); Urine Benzodiazepines Negative (Negative); Urine Cocaine Negative (Negative); Urine MDMA Negative (Negative); Urine Methadone Negative (Negative); Urine Methamphetamines Negative (Negative); Urine Oxycodone Negative (Negative); Urine Phencyclidine Negative (Negative); Urine Tetrahydrocannabinol Negative (Negative); Urine Tricyclic Antidepressant Negative (Negative); Urine pH Normal (Normal)
[2021-10-12 14:16] LABS: Add Manual Diff / Slide Review NO; Basophils Absolute Auto 100 /uL (0-100); Basophils Percent Auto 1.2 % (0-2); Eosinophils Absolute Auto 100 /uL (0-450); Hematocrit 34.1 % (36-46); Hemoglobin 11.7 g/dL (12.0-16.0); Lymphocytes Absolute Auto 1200 /uL (1100-4500); Mean Corpuscular HGB Conc 34.3 % (30-36); Mean Corpuscular Hemoglobin 27.7 PG (26-34); Mean Corpuscular Volume 80.8 fL (80-100); Monocytes Absolute Auto 300 /uL (0-900); Monocytes Percent Auto 5.4 % (3-14); Neutrophils Absolute Auto 4600 /uL (1500-7000); Neutrophils Percent Auto 73.4 % (50-75); Platelet Count 306 X10^3/uL (150-400); Red Blood Cell Count 4.22 X10^6/uL (4.0-5.2); Red Cell Distribution Width 13.3 % (11.6-14.8); White Blood Cell Count 6.3 X10^3/uL (4.5-11.0)
[2021-10-12 14:31] LABS: D Dimer 276 ng/mL (<230)
[2021-10-12 14:33] LABS: Alanine Aminotransferase 26 IU/L (<35); Albumin 4.1 g/dL (3.5-5.0); Albumin Globulin Ratio 1.1 (1.0-2.8); Alkaline Phosphatase 140 U/L (38-126); Aspartate Aminotransferase 28 IU/L (14-36); BUN Creatinine Ratio 19.1 (6-22); Bilirubin Total 0.6 mg/dL (0.2-1.3); Blood Urea Nitrogen 17 mg/dL (7-17); Calcium 9.2 mg/dL (8.4-10.2); Carbon Dioxide 27 mmol/L (22-32); Chloride 104 mmol/L (98-107); Creatine Kinase 81 U/L (30-135); Estimated Glomerular Filt Rate > 60.0 mL/min (>60); Globulin 3.6 g/dL (1.7-4.1); Glucose 102 mg/dL (70-100); HEMOLYSIS < 15 (0-50); Lipase 90 U/L (23-300); Potassium 4.5 mmol/L (3.4-5.1); Sodium 135 mmol/L (137-145); Total Protein 7.7 g/dL (6.3-8.2)
[2021-10-12 14:42] LABS: NT-proBNP (BNP-Adult 18+) 195 pg/mL (<125)
[2021-10-12 14:44] LABS: Troponin I < 0.012 ng/mL (0.01-0.034)
--- NOTE | 2021-10-12 14:54 | DI.US.S_ITS ---
PROCEDURE: [facility] VENOUS LOW EXTREM BI INDICATIONS: SWELLING. POSITIVE D-DIMER TECHNIQUE: Real-time imaging, as well as color and pulse Doppler interrogation, were performed of the deep veins of both legs from the inguinal ligament to the popliteal fossa. COMPARISON: [facility], , [facility] VENOUS LOW EXTREM , 05/05/2020, 13:32. FINDINGS: Right: The common femoral, femoral and popliteal veins are normally compressible, and free of intraluminal thrombus. Color and pulse Doppler demonstrate normal phasic intravascular flow. There is normal augmentation response to distal compression maneuver. Left: The common femoral, femoral and popliteal veins are normally compressible, and free of intraluminal thrombus. Color and pulse Doppler demonstrate normal phasic intravascular flow. There is normal augmentation response to distal compression maneuver. IMPRESSION: No sonographic evidence of deep venous thrombosis in the right or left lower extremity. Dictated by: Rohan Freitas M.D. on 10/12/2021 at 15:42 Approved by: Rohan Freitas M.D. on 10/12/2021 at 15:43
--- NOTE | 2021-10-12 14:54 | DI.CT.S_ITS ---
PROCEDURE: CT ANGIO CHEST PE PROTOCOL INDICATIONS: sob, + dimer TECHNIQUE: After the administration of intravenous contrast, 2 mm thick sections acquired from the pulmonary apices to the posterior costophrenic angles. 3-dimensional maximum intensity projection (MIP) coronal and sagittal reformats were then acquired through the thorax. For radiation dose reduction, the following was used: automated exposure control, adjustment of mA and/or kV according to patient size. COMPARISON: [facility], CT, CT ANGIO CHEST PE PROTOCOL, 05/05/2020, 13:11. FINDINGS: Image quality: Pulmonary arteries are suboptimally opacified. Pulmonary arteries: Pulmonary arteries are normal in size, and demonstrate no definitive intraluminal filling defects to suggest central pulmonary embolism. Lungs and pleura: Lungs are clear. No pleural effusions or pneumothorax. Central and peripheral airways are patent. Mediastinum: Heart size is normal, without pericardial effusion. No mediastinal or hilar adenopathy. Thoracic aorta is normal in caliber and enhancement. Esophagus is normal in caliber. Small hiatal hernia. Bones and chest wall: No suspicious bony lesions. Ribs and thoracic spine appear intact throughout. Thyroid gland is normal. No axillary or supraclavicular adenopathy. Multiple subcentimeter axillary lymph nodes are noted bilaterally, most likely reactive. Abdomen: Visualized upper abdominal solid organs appear normal in the early arterial phase of enhancement. There may be gallstones. IMPRESSION: 1. Suboptimal opacification of pulmonary arteries. No definitive evidence for pulmonary embolism. 2. No acute cardiopulmonary process. 3. Question gallstones. If clinically indicated, ultrasound may be helpful. Dictated by: Mary Paulino M.D. on 10/12/2021 at 15:53 Approved by: Mary Paulino M.D. on 10/12/2021 at 15:58
[2021-10-12 15:30] LABS: Ethanol (ETOH) < 10 mg/dL
[2021-10-12 15:32] LABS: COVID19 -Nasal RAPID Negative (Negative)
[2021-10-12] MEDS: LORazepam 2 MG/ML INJ 1 MG IV (15:33)
[2021-10-12 15:48] LABS: TSH w/ Reflex to FT4 6.06 uIU/mL (0.47-4.68)
[2021-10-12 16:16] LABS: Free T4, Direct Thyroxine 1.35 ng/dL (0.78-2.19)
--- NOTE | 2021-10-12 19:23 | CM.SWNOTE ---
MASTIC WORKER Assessment Note MASTIC WORKER receives consult and enters room to meet with patient. Patient is 41 y/o female who presents to ED with mother with concern for rapid heart rate and high BP, and panic attacks. Patient has dx of Autism Spectrum Disorder and Developmental delays. Mother endorses that patient was in the ICU at [facility] due cardiology concerns. Patient has been following up with domestic helper Dr. Reid. Patient is in between PCPs and in need of new PCP, patient has [employer] and insurance. Patient endorses anxiety and that her heart beats fast but can not indicate or identify what causes it. Patient identifies deep breaths and Shannon chocolate help. Patient and mother denies the need for MH counselor and denies the need for MH medications. MASTIC WORKER discusses calming and grounding techniques with patient. Patient endorses safety at home, denies HI and SI. Patient is established with DDA and D[employer] services. Patient indicates care and bonding relationship with mother. MASTIC WORKER provides patient and mother a list of PCPs that accept [employer] insurance and mother indicates that she will seek PCP and schedule appt to establish care. Plan: Patient to d/c to home when medically clear and mother to seek PCP for f/u ANGELINE Carlson
== END 2021-10-12 17:46 | disposition home or self-care (01) ==
PROVIDERS: Emergency Provider Nurse Practitioner Family; PCP Nurse Practitioner Family
DX: F41.9 Anxiety disorder, unspecified (principal); R00.2 Palpitations
CPT/HCPCS: 36415; 71045; 71275; 80053; 80305; 80320; 81003; 81015; 81025; 82550; 83690; 83880; 84439; 84443; 84484; 85025; 85379; 87635; 93005; 93010; 93970; 96374; 99284; 99285; C9803; J2060; Q9967